=== PATIENT | male | born 1955 | race African-American/Black ===

== ENCOUNTER 2016-12-05 10:54 | Inpatient (IN) | payer MEDICAID ==
[~2016-12-05] VITALS: Ht 182.9 cm; Wt 74.4 kg
[2016-12-05 11:19] VITALS: BP_SYST 164
[2016-12-05 11:40] LABS: BASOPHILS # (AUTO) 0.3 K/uL (0.0-0.2); BASOPHILS % (AUTO) 3.5 % (0.0-2.0); EOSINOPHILS # (AUTO) 0.3 K/uL (0.0-0.4); EOSINOPHILS % (AUTO) 3.7 % (0.0-4.0); HEMATOCRIT 46.2 % (36-54); HEMOGLOBIN 14.8 g/dL (14.0-18.0); LYMPHOCYTES % (AUTO) 26.5 % (20.5-51.5); MEAN CORPUSCULAR HEMOGLOBIN 31 pg (27-31); MEAN CORPUSCULAR HGB CONC 32 % (32-36); MEAN CORPUSCULAR VOLUME 96 fL (79.0-98.0); MONOCYTES # (AUTO) 0.8 K/uL (0.0-1.0); MONOCYTES % (AUTO) 10.4 % (1.7-9.3); NEUTROPHILS # (AUTO) 4.3 K/uL (1.8-7.7); NEUTROPHILS % (AUTO) 55.9 % (40.0-70.0); PLATELET COUNT (AUTO) 297 K/uL (130-430); RED BLOOD CELL COUNT(AUTO) 4.79 MIL/uL (4.2-6.2); RED CELL DISTRIBUTION WIDTH 12.8 % (9.0-15.0); WHITE BLOOD COUNT (AUTO) 7.7 K/uL (4.8-10.8)
[2016-12-05 11:48] LABS: ANION GAP 10 (5-15); CHLORIDE 100 mmol/L (98-107); GLUCOSE 111 mg/dL (70-99); POTASSIUM 3.8 mmol/L (3.5-5.1); SODIUM SERUM 141 mmol/L (136-145); UREA NITROGEN, BLOOD 17 mg/dL (8-21)
[2016-12-05 11:52] LABS: GFR AFRICAN AMERICAN 126 mL/min (>90)
[2016-12-05 11:56] LABS: ALANINE AMINOTRANSFERASE 45 U/L (12-78); ASPARTATE AMINOTRANSFERASE 19 U/L (10-37); TOTAL BILIRUBIN 0.7 mg/dL (0.0-1.0); TOTAL PROTEIN, SERUM 8.2 g/dL (6.4-8.3)
[2016-12-05] MEDS ORDERED: GLYCERIN 1 SUPP.RECT (ADULT) RC ONE (12:00)
[2016-12-05] MEDS ORDERED: MAGNESIUM CITRATE 300 ML ORAL SOLUTION PO ONE (12:00)
[2016-12-05] MEDS ORDERED: NACL 0.9% 1,000 ML IV ONE (12:00)
[2016-12-05] MEDS ORDERED: IOHEXOL 350 mgI/mL, 150 ML INFUS..BTL IV ONE (12:47)
[2016-12-05] MEDS ORDERED: MORPHINE 4 MG/ML INJ. SYRINGE IVP ONE ×2 (13:00→14:00)
[2016-12-05] MEDS ORDERED: HALOPERIDOL LACTATE 5 MG/ML VIAL IVP ONE (14:45)
[2016-12-05] MEDS ORDERED: AZITHROMYCIN 500 MG in NS 250 ML IV ONE (15:00)
[2016-12-05] MEDS ORDERED: cefTRIAXone 1 GM in D5W 50 ML IV ONE (15:00)
[2016-12-05] MEDS ORDERED: THIA100T13 PO (15:24)
[2016-12-05] MEDS ORDERED: BACL10TA PO (15:24)
[2016-12-05] MEDS ORDERED: GABA-533 PO (15:24)
[2016-12-05] MEDS ORDERED: RIVA20TA PO (15:24)
[2016-12-05] MEDS ORDERED: ZOLP5TAB2 PO (15:24)
[2016-12-05] MEDS ORDERED: AMLO10TA88 PO (15:24)
[2016-12-05] MEDS ORDERED: POTA20TA83 PO (15:24)
[2016-12-05] MEDS ORDERED: ATOR40TA68 PO (15:24)
[2016-12-05] MEDS ORDERED: AMIT25TA9 PO (15:24)
[2016-12-05] MEDS ORDERED: HYDR25TA4 PO (15:24)
[2016-12-05] MEDS ORDERED: MAGN400T10 PO (15:24)
[2016-12-05] MEDS ORDERED: HYDR-1189 PO (15:24)
[2016-12-05] MEDS ORDERED: BISA10SU8 RC (15:24)
[2016-12-05] MEDS ORDERED: CYM30 PO (15:24)
[2016-12-05] MEDS ORDERED: SENN8.6T19 PO (15:24)
[2016-12-05] MEDS ORDERED: MAGN64TA7 PO (15:24)
[2016-12-05] MEDS ORDERED: FENT-71 TD (15:24)
[2016-12-05] MEDS ORDERED: cefTRIAXone 1 GM VIAL ONE (15:57)
[2016-12-05] MEDS ORDERED: AZITHROMYCIN 500 MG/VIAL (ZITHROMAX) IV ONE (15:58)
[2016-12-05 16:18] VITALS: BP_SYST 135
[2016-12-05] MEDS ORDERED: ZOLPIDEM TARTRATE 5 MG TABLET PO PRN (17:15)
[2016-12-05] MEDS ORDERED: AMITRIPTYLINE HCL 25 MG TABLET (ELAVIL) PO PRN (17:15)
[2016-12-05] MEDS ORDERED: ALBUTEROL SULFATE 0.083% 2.5 MG/3 ML VIAL.NEB INH PRN (17:15)
[2016-12-05] MEDS ORDERED: IPRATROPIUM BROM 0.5 MG/2.5 ML VIAL.NEB (ATROVENT) INH PRN (17:15)
[2016-12-05 17:21] VITALS: BP_SYST 135
[2016-12-05] MEDS: RIVAROXABAN 10 MG TABLET PO SCH (18:00)
[2016-12-05] MEDS: PIPERACILLIN/TAZO 3.375/DEX-IS 50 ML IV SCH (18:00)
[2016-12-05] MEDS: ALBUTEROL SULFATE 0.083% 2.5 MG/3 ML VIAL.NEB INH SCH ×2 (19:43→23:00)
[2016-12-05] MEDS: IPRATROPIUM BROM 0.5 MG/2.5 ML VIAL.NEB (ATROVENT) INH SCH ×2 (19:43→23:00)
[2016-12-05] MEDS: D5NS 1,000 ML IV SCH (20:39)
[2016-12-05] MEDS: MORPHINE 2 MG/ML INJ. SYRINGE IVP PRN (20:40)
[2016-12-05] MEDS: DULoxetine HCL 30 MG CAPSULE.DR (CYMBALTA) PO SCH (21:00)
[2016-12-05] MEDS: BACLOFEN 10 MG TABLET PO SCH (21:00)
[2016-12-05] MEDS: MAGNESIUM OXIDE 400 MG TABLET PO SCH (21:00)
[2016-12-05] MEDS: GABAPENTIN 400 MG CAPSULE PO SCH (21:00)
[2016-12-06] VITALS: BP_SYST 148
[2016-12-06] MEDS: PIPERACILLIN/TAZO 3.375/DEX-IS 50 ML IV SCH ×4 (01:12→18:08)
[2016-12-06] MEDS: MORPHINE 2 MG/ML INJ. SYRINGE IVP PRN ×4 (01:21→18:09)
[2016-12-06] MEDS: ALBUTEROL SULFATE 0.083% 2.5 MG/3 ML VIAL.NEB INH SCH ×6 (03:30→23:00)
[2016-12-06] MEDS: IPRATROPIUM BROM 0.5 MG/2.5 ML VIAL.NEB (ATROVENT) INH SCH ×6 (03:30→23:00)
[2016-12-06 04:41] VITALS: BP_SYST 128
[2016-12-06 08:07] VITALS: BP_SYST 123
[2016-12-06] MEDS: DULoxetine HCL 30 MG CAPSULE.DR (CYMBALTA) PO SCH ×2 (09:00→21:22)
[2016-12-06] MEDS: HYDROCHLOROTHIAZIDE 25 MG TABLET (HCTZ) PO SCH (09:00)
[2016-12-06] MEDS: MAGNESIUM OXIDE 400 MG TABLET PO SCH ×2 (09:00→21:23)
[2016-12-06] MEDS: amLODIPine BESYLATE 10 MG TABLET PO SCH (09:00)
[2016-12-06] MEDS: THIAMINE HCL 100 MG TABLET PO SCH (09:00)
[2016-12-06] MEDS: ATORVASTATIN 20 MG TABLET PO SCH (09:00)
[2016-12-06] MEDS: BACLOFEN 10 MG TABLET PO SCH ×3 (09:00→21:22)
[2016-12-06] MEDS: POTASSIUM CHLORIDE 20 MEQ TAB.PRT.SR PO SCH (09:00)
[2016-12-06] MEDS: GABAPENTIN 400 MG CAPSULE PO SCH ×3 (09:00→21:23)
[2016-12-06 12:15] VITALS: BP_SYST 128
[2016-12-06] MEDS: D5NS 1,000 ML IV SCH (14:41)
[2016-12-06 16:09] VITALS: BP_SYST 156
[2016-12-06] MEDS: RIVAROXABAN 10 MG TABLET PO SCH (18:08)
[2016-12-06 20:00] VITALS: BP_SYST 139
[2016-12-06] MEDS: HYDROcodone/ACETAMIN 5-325 MG TAB (NORCO/ VICODIN) PO PRN (21:23)
[2016-12-07] VITALS: BP_SYST 139
[2016-12-07] MEDS: PIPERACILLIN/TAZO 3.375/DEX-IS 50 ML IV SCH ×4 (00:22→17:32)
[2016-12-07] MEDS: IPRATROPIUM BROM 0.5 MG/2.5 ML VIAL.NEB (ATROVENT) INH SCH ×6 (03:00→23:17)
[2016-12-07] MEDS: ALBUTEROL SULFATE 0.083% 2.5 MG/3 ML VIAL.NEB INH SCH ×6 (03:00→23:17)
[2016-12-07 03:33] VITALS: BP_SYST 135
[2016-12-07] MEDS: D5NS 1,000 ML IV SCH (06:24)
[2016-12-07 08:00] VITALS: BP_SYST 150
[2016-12-07 08:01] LABS: BASOPHILS % (AUTO) 0.3 % (0.0-2.0); EOSINOPHILS # (AUTO) 0.2 K/uL (0.0-0.4); EOSINOPHILS % (AUTO) 3.4 % (0.0-4.0); HEMATOCRIT 38.8 % (36-54); LYMPHOCYTES # (AUTO) 1.7 K/uL (1.0-5.5); LYMPHOCYTES % (AUTO) 24.8 % (20.5-51.5); MEAN CORPUSCULAR HEMOGLOBIN 34 pg (27-31); MEAN CORPUSCULAR HGB CONC 34 % (32-36); MEAN CORPUSCULAR VOLUME 102 fL (79.0-98.0); MONOCYTES # (AUTO) 0.7 K/uL (0.0-1.0); MONOCYTES % (AUTO) 9.9 % (1.7-9.3); NEUTROPHILS # (AUTO) 4.2 K/uL (1.8-7.7); NEUTROPHILS % (AUTO) 61.6 % (40.0-70.0); PLATELET COUNT (AUTO) 252 K/uL (130-430); RED BLOOD CELL COUNT(AUTO) 3.82 MIL/uL (4.2-6.2); RED CELL DISTRIBUTION WIDTH 12.6 % (9.0-15.0); WHITE BLOOD COUNT (AUTO) 6.8 K/uL (4.8-10.8)
[2016-12-07] MEDS: MAGNESIUM OXIDE 400 MG TABLET PO SCH ×2 (08:07→22:23)
[2016-12-07] MEDS: DULoxetine HCL 30 MG CAPSULE.DR (CYMBALTA) PO SCH ×2 (08:07→22:23)
[2016-12-07] MEDS: THIAMINE HCL 100 MG TABLET PO SCH (08:07)
[2016-12-07] MEDS: GABAPENTIN 400 MG CAPSULE PO SCH ×3 (08:07→22:23)
[2016-12-07] MEDS: POTASSIUM CHLORIDE 20 MEQ TAB.PRT.SR PO SCH (08:07)
[2016-12-07] MEDS: HYDROCHLOROTHIAZIDE 25 MG TABLET (HCTZ) PO SCH (08:07)
[2016-12-07] MEDS: BACLOFEN 10 MG TABLET PO SCH ×3 (08:07→22:23)
[2016-12-07] MEDS: amLODIPine BESYLATE 10 MG TABLET PO SCH (08:07)
[2016-12-07] MEDS: ATORVASTATIN 20 MG TABLET PO SCH (08:08)
[2016-12-07] MEDS: MORPHINE 2 MG/ML INJ. SYRINGE IVP PRN (08:08)
[2016-12-07 08:14] LABS: ALBUMIN 3.4 g/dL (3.4-4.8); CALCIUM 9.2 mg/dL (8.4-11.0); CREATININE 0.78 mg/dL (0.55-1.30); POTASSIUM 3.6 mmol/L (3.5-5.1); TOTAL BILIRUBIN 0.7 mg/dL (0.0-1.0); TOTAL PROTEIN, SERUM 7.6 g/dL (6.4-8.3)
[2016-12-07] MEDS: 0.45% NACL 1,000 ML IV SCH (11:19)
[2016-12-07 12:42] VITALS: BP_SYST 140
[2016-12-07] MEDS: RIVAROXABAN 10 MG TABLET PO SCH (17:29)
[2016-12-07] MEDS: HYDROcodone/ACETAMIN 5-325 MG TAB (NORCO/ VICODIN) PO PRN (17:33)
[2016-12-07 19:00] VITALS: BP_SYST 145
[2016-12-07 23:30] VITALS: BP_SYST 145
[2016-12-08] MEDS: MORPHINE 2 MG/ML INJ. SYRINGE IVP PRN ×4 (00:35→20:49)
[2016-12-08] MEDS: PIPERACILLIN/TAZO 3.375/DEX-IS 50 ML IV SCH ×4 (00:36→17:25)
[2016-12-08] MEDS: ALBUTEROL SULFATE 0.083% 2.5 MG/3 ML VIAL.NEB INH SCH ×4 (03:00→21:12)
[2016-12-08] MEDS: IPRATROPIUM BROM 0.5 MG/2.5 ML VIAL.NEB (ATROVENT) INH SCH ×4 (03:00→21:13)
[2016-12-08 04:00] VITALS: BP_SYST 148
[2016-12-08] MEDS: HYDROcodone/ACETAMIN 5-325 MG TAB (NORCO/ VICODIN) PO PRN (05:03)
[2016-12-08 08:29] VITALS: BP_SYST 150
[2016-12-08] MEDS: ATORVASTATIN 20 MG TABLET PO SCH (08:37)
[2016-12-08] MEDS: HYDROCHLOROTHIAZIDE 25 MG TABLET (HCTZ) PO SCH (08:38)
[2016-12-08] MEDS: POTASSIUM CHLORIDE 20 MEQ TAB.PRT.SR PO SCH (08:38)
[2016-12-08] MEDS: amLODIPine BESYLATE 10 MG TABLET PO SCH (08:38)
[2016-12-08] MEDS: DULoxetine HCL 30 MG CAPSULE.DR (CYMBALTA) PO SCH ×2 (08:38→20:49)
[2016-12-08] MEDS: GABAPENTIN 400 MG CAPSULE PO SCH ×3 (08:39→20:49)
[2016-12-08] MEDS: BACLOFEN 10 MG TABLET PO SCH ×3 (08:39→20:49)
[2016-12-08] MEDS: THIAMINE HCL 100 MG TABLET PO SCH (08:39)
[2016-12-08] MEDS: MAGNESIUM OXIDE 400 MG TABLET PO SCH ×2 (08:39→20:49)
[2016-12-08] MEDS ORDERED: IMMUNE GLOBULIN,GAMMA(IGG) 0.5 GM ML IV SCH (09:00)
[2016-12-08] MEDS: 0.45% NACL 1,000 ML IV SCH (10:39)
[2016-12-08 13:01] VITALS: BP_SYST 144
[2016-12-08 14:28] LABS: BILIRUBIN,URINE NEGATIVE (NEGATIVE); BLOOD, URINE 2+ (NEGATIVE); CLARITY/URINE CLEAR (CLEAR); COLOR,URINE YELLOW (YELLOW); GLUCOSE,URINE NEGATIVE (NEGATIVE); KETONES,URINE NEGATIVE (NEGATIVE); LEUKOCYTE ESTERASE ,URINE NEGATIVE (NEGATIVE); NITRITE, URINE NEGATIVE (NEGATIVE); PROTEIN URINE NEGATIVE (NEGATIVE); UROBILINOGEN,URINE 0.2 (0.2-1.0)
[2016-12-08 14:36] LABS: RBC,URINE 20-50 /HPF (0-3)
[2016-12-08 14:37] LABS: BACTERIA,URINE FEW /HPF (None Seen); MUCUS,URINE None Seen /LPF (None Seen); WBC,URINE 0-3 /HPF (0-3)
[2016-12-08 16:47] VITALS: BP_SYST 144
[2016-12-08] MEDS: RIVAROXABAN 10 MG TABLET PO SCH (17:26)
[2016-12-08] MEDS ORDERED: POLYETHYLENE GLYCOL 3350, 17 GM/ POWD.PACK PO ONE (18:00)
[2016-12-09] MEDS ORDERED: POLYETHYLENE GLYCOL 3350, 17 GM/ POWD.PACK PO SCH (09:00)
== END 2016-12-08 22:06 | DRG 137 ==
LOC: SED 10:54 → STU 15:13 → SMU 12-08 16:04
PROVIDERS: ADMIT Internal Medicine Hospice and Palliative Medicine; ATTEND Internal Medicine Hospice and Palliative Medicine
DX: J69.0 Pneumonitis due to inhalation of food and vomit (principal); G61.0 Guillain-Barre syndrome; R13.10 Dysphagia, unspecified; G61.81 Chronic inflammatory demyelinating polyneuritis; E78.5 Hyperlipidemia, unspecified; I10 Essential (primary) hypertension; G89.29 Other chronic pain; Z79.899 Other long term (current) drug therapy; Z86.718 Personal history of other venous thrombosis and embolism; Z79.01 Long term (current) use of anticoagulants
CPT/HCPCS: 36415; 71010; 71275; 80053; 81000-TC; 84484; 85025; 87081; 92610-GN; 93005; 93970; 94640; 94760; 96361; 96365; 96375; 96376; 99285; J0456; J0696; J2270; J2543; J7042; J7050; Q9967

== ENCOUNTER 2016-12-09 18:04 | Inpatient (IN) | payer MEDICAID ==
[~2016-12-09] VITALS: Ht 182.9 cm; Wt 72.1 kg
[2016-12-09] VITALS (7 sets, daily range): BP systolic 124–194
[~2016-12-09 18:04] MED LIST: AMIT25TA9 PO; AMLO10TA88 PO; ATOR40TA68 PO; BACL10TA PO; BISA10SU8 RC; CYM30 PO; ETOMIDATE 20 MG/ 10 ML VIAL (AMIDATE) IVP ONE; FENT-71 TD; GABA-533 PO; HYDR-1189 PO; HYDR25TA4 PO; MAGN400T10 PO; MAGN64TA7 PO; POTA20TA83 PO; RIVA20TA PO; SENN8.6T19 PO; SUCCINYLCHOLINE CHLORIDE 20 MG/ML(QUELICIN) IVP ONE; THIA100T13 PO; ZOLP5TAB2 PO
[2016-12-09] MEDS ORDERED: VANCOMYCIN HCL 1,000 MG in NS 250 ML IV ONE (18:30)
[2016-12-09] MEDS ORDERED: NACL 0.9% 1,000 ML IV ONE (18:30)
[2016-12-09] MEDS ORDERED: PIPERACILLIN/TAZO 3.375 GM in NS 50 ML IV ONE (18:30)
[2016-12-09] MEDS ORDERED: PROPOFOL DRIP 100 ML IV ONE ×2 (18:30→18:31)
[2016-12-09] MEDS ORDERED: ETOMIDATE 20 MG/ 10 ML VIAL (AMIDATE) IVP ONE (18:45)
[2016-12-09] MEDS ORDERED: PIPERACILLIN/TAZOBACTAM 3.375 GM/VIAL (ZOSYN) IV ONE (18:45)
[2016-12-09] MEDS ORDERED: DIAZEPAM 10 MG/2 ML DISP.SYRIN IVP ONE ×2 (18:45→19:45)
[2016-12-09] MEDS ORDERED: SUCCINYLCHOLINE CHLORIDE 20 MG/ML(QUELICIN) IVP ONE (18:45)
[2016-12-09 19:23] LABS: BASOPHILS % (AUTO) 0.1 % (0.0-2.0); EOSINOPHILS # (AUTO) 0.1 K/uL (0.0-0.4); EOSINOPHILS % (AUTO) 0.4 % (0.0-4.0); HEMATOCRIT 45.9 % (36-54); HEMOGLOBIN 15.9 g/dL (14.0-18.0); LYMPHOCYTES # (AUTO) 1.7 K/uL (1.0-5.5); LYMPHOCYTES % (AUTO) 13.7 % (20.5-51.5); MEAN CORPUSCULAR HEMOGLOBIN 35 pg (27-31); MEAN CORPUSCULAR HGB CONC 35 % (32-36); MEAN CORPUSCULAR VOLUME 99 fL (79.0-98.0); MONOCYTES # (AUTO) 0.7 K/uL (0.0-1.0); MONOCYTES % (AUTO) 5.9 % (1.7-9.3); NEUTROPHILS % (AUTO) 79.9 % (40.0-70.0); PLATELET COUNT (AUTO) 319 K/uL (130-430); RED BLOOD CELL COUNT(AUTO) 4.62 MIL/uL (4.2-6.2); RED CELL DISTRIBUTION WIDTH 12.3 % (9.0-15.0); WHITE BLOOD COUNT (AUTO) 12.5 K/uL (4.8-10.8)
[2016-12-09 19:23] LABS: ABG TOTAL HEMOGLOBIN 14.9 G/dL (12.0-18.0); BLOOD GAS BASE EXCESS -4.5 mmol/L (-3.0-3.0); BLOOD GAS PH 7.364 (7.350-7.450); BLOOD O2Hb% 92.2 % (94.0-97.0)
[2016-12-09 19:24] LABS: BLOOD GAS COHb% 0.6 % (0.5-1.5); BLOOD GAS HHB 6.7 % (0.0-6.0)
[2016-12-09 19:25] LABS: CREATININE 0.63 mg/dL (0.55-1.30)
[2016-12-09 19:30] LABS: ALBUMIN 4.3 g/dL (3.4-4.8); INR 1.1 (0.80-1.20); PROTHROMBIN TIME 12.2 SECS (9.5-12.5); TOTAL BILIRUBIN 0.8 mg/dL (0.0-1.0); TOTAL PROTEIN, SERUM 9.5 g/dL (6.4-8.3)
[2016-12-09 19:39] LABS: BILIRUBIN,URINE NEGATIVE (NEGATIVE); BLOOD, URINE 3+ (NEGATIVE); COLOR,URINE YELLOW (YELLOW); GLUCOSE,URINE NEGATIVE (NEGATIVE); KETONES,URINE 1+ (NEGATIVE); LEUKOCYTE ESTERASE ,URINE NEGATIVE (NEGATIVE); NITRITE, URINE NEGATIVE (NEGATIVE); PROTEIN URINE 1+ (NEGATIVE); UROBILINOGEN,URINE 0.2 (0.2-1.0)
[2016-12-09 19:50] LABS: CLARITY/URINE SLIGHTLY HAZY (CLEAR)
[2016-12-09 19:51] LABS: BACTERIA,URINE FEW /HPF (None Seen); RBC,URINE 20-50 /HPF (0-3); WBC,URINE 0-3 /HPF (0-3)
[2016-12-09 19:52] LABS: MUCUS,URINE None Seen /LPF (None Seen)
[2016-12-09] MEDS: D5/0.45 NS 1,000 ML IV SCH (21:24)
[2016-12-09] MEDS ORDERED: BISACODYL 10 MG/SUPPOSITORY RC PRN (22:00)
[2016-12-09] MEDS ORDERED: HYDROcodone/ACETAMIN 5-325 MG TAB (NORCO/ VICODIN) PO PRN (22:00)
[2016-12-09] MEDS: ALBUTEROL SULFATE 0.083% 2.5 MG/3 ML VIAL.NEB INH SCH (23:28)
[2016-12-10] VITALS (36 sets, daily range): BP systolic 108–184
[2016-12-10] MEDS: hydrALAZINE HCL 20 MG/ML VIAL IVP PRN ×3 (00:07→21:20)
[2016-12-10] MEDS: MORPHINE 4 MG/ML INJ. SYRINGE IVP PRN ×4 (02:52→21:12)
[2016-12-10] MEDS: PROPOFOL DRIP 100 ML IV PRN ×5 (04:21→23:21)
[2016-12-10] MEDS: methylPREDNISolone SOD SUCC/PF 62.5 MG/ML VIAL IVP SCH ×3 (05:31→21:02)
[2016-12-10 07:08] LABS: ALBUMIN 3.6 g/dL (3.4-4.8); CALCIUM 9.3 mg/dL (8.4-11.0); CREATININE 0.5 mg/dL (0.55-1.30); TOTAL BILIRUBIN 0.8 mg/dL (0.0-1.0); TOTAL PROTEIN, SERUM 8.1 g/dL (6.4-8.3)
[2016-12-10 07:11] LABS: BASOPHILS % (AUTO) 0.2 % (0.0-2.0); EOSINOPHILS % (AUTO) 0.2 % (0.0-4.0); HEMATOCRIT 42.3 % (36-54); HEMOGLOBIN 14.4 g/dL (14.0-18.0); LYMPHOCYTES # (AUTO) 1.4 K/uL (1.0-5.5); LYMPHOCYTES % (AUTO) 9.9 % (20.5-51.5); MEAN CORPUSCULAR HEMOGLOBIN 34 pg (27-31); MEAN CORPUSCULAR HGB CONC 34 % (32-36); MEAN CORPUSCULAR VOLUME 99 fL (79.0-98.0); MONOCYTES # (AUTO) 1.2 K/uL (0.0-1.0); MONOCYTES % (AUTO) 8.6 % (1.7-9.3); PLATELET COUNT (AUTO) 296 K/uL (130-430); RED BLOOD CELL COUNT(AUTO) 4.28 MIL/uL (4.2-6.2); RED CELL DISTRIBUTION WIDTH 12.3 % (9.0-15.0); WHITE BLOOD COUNT (AUTO) 13.6 K/uL (4.8-10.8)
[2016-12-10] MEDS: ALBUTEROL SULFATE 0.083% 2.5 MG/3 ML VIAL.NEB INH SCH ×5 (07:55→23:17)
[2016-12-10 08:01] LABS: BLOOD GAS PH 7.448 (7.350-7.450)
[2016-12-10 08:02] LABS: ABG TOTAL HEMOGLOBIN 14.9 G/dL (12.0-18.0); BLOOD GAS BASE EXCESS -0.1 mmol/L (-3.0-3.0); BLOOD GAS COHb% 0.2 % (0.5-1.5); BLOOD GAS HHB 1.7 % (0.0-6.0); BLOOD O2Hb% 97.9 % (94.0-97.0)
[2016-12-10] MEDS: D5/0.45 NS 1,000 ML IV SCH ×4 (08:45→21:15)
[2016-12-10] MEDS ORDERED: POTASSIUM CHLORIDE 40 MEQ in NS 250 ML IV ONE (08:45)
[2016-12-10] MEDS: SENNOSIDES 8.6 MG TABLET PO SCH (09:00)
[2016-12-10] MEDS: LEVOFLOXACIN 500 MG/D5W 100 ML IV SCH (09:01)
[2016-12-10] MEDS: THIAMINE HCL 100 MG TABLET PO SCH (09:45)
[2016-12-10] MEDS: MAGNESIUM OXIDE 400 MG TABLET PO SCH ×2 (09:45→21:01)
[2016-12-10] MEDS: GABAPENTIN 400 MG CAPSULE PO SCH ×3 (09:45→21:01)
[2016-12-10] MEDS: ATORVASTATIN 20 MG TABLET PO SCH (09:46)
[2016-12-10] MEDS: amLODIPine BESYLATE 10 MG TABLET PO SCH (09:46)
[2016-12-10] MEDS: RIVAROXABAN 10 MG TABLET PO SCH (09:47)
[2016-12-10 10:17] LABS: NEUTROPHILS % (AUTO) 81.1 % (40.0-70.0)
[2016-12-10] MEDS: metroNIDAZOLE 500 mg/NS 100 ML IV SCH ×2 (14:01→21:02)
[2016-12-11] VITALS (33 sets, daily range): BP systolic 112–173
[2016-12-11] MEDS: D5/0.45 NS 1,000 ML IV SCH ×3 (02:25→21:04)
[2016-12-11] MEDS ORDERED: PROPOFOL DRIP 100 ML IV ONE (03:26)
[2016-12-11] MEDS: ALBUTEROL SULFATE 0.083% 2.5 MG/3 ML VIAL.NEB INH SCH ×6 (03:41→23:05)
[2016-12-11] MEDS: hydrALAZINE HCL 20 MG/ML VIAL IVP PRN ×2 (04:11→18:01)
[2016-12-11] MEDS: MORPHINE 4 MG/ML INJ. SYRINGE IVP PRN (05:36)
[2016-12-11] MEDS: methylPREDNISolone SOD SUCC/PF 62.5 MG/ML VIAL IVP SCH ×3 (05:36→21:02)
[2016-12-11] MEDS: metroNIDAZOLE 500 mg/NS 100 ML IV SCH ×3 (05:37→21:03)
[2016-12-11] MEDS: LEVOFLOXACIN 500 MG/D5W 100 ML IV SCH (08:13)
[2016-12-11] MEDS: RIVAROXABAN 10 MG TABLET PO SCH (08:14)
[2016-12-11] MEDS: MAGNESIUM OXIDE 400 MG TABLET PO SCH ×2 (08:14→21:02)
[2016-12-11] MEDS: ATORVASTATIN 20 MG TABLET PO SCH (08:14)
[2016-12-11] MEDS: THIAMINE HCL 100 MG TABLET PO SCH (08:14)
[2016-12-11] MEDS: GABAPENTIN 400 MG CAPSULE PO SCH ×3 (08:14→21:02)
[2016-12-11] MEDS: amLODIPine BESYLATE 10 MG TABLET PO SCH (08:15)
[2016-12-11] MEDS: SENNOSIDES 8.6 MG TABLET PO SCH (08:16)
[2016-12-11 08:27] LABS: ABG TOTAL HEMOGLOBIN 13.7 G/dL (12.0-18.0); BLOOD GAS COHb% 0.1 % (0.5-1.5); BLOOD GAS HHB 1.6 % (0.0-6.0); BLOOD GAS PH 7.467 (7.350-7.450); BLOOD O2Hb% 97.9 % (94.0-97.0)
[2016-12-11] MEDS: PROPOFOL DRIP 100 ML IV PRN ×3 (09:47→18:08)
[2016-12-11] MEDS ORDERED: IMMUNE GLOBULIN,GAMMA(IGG) 0.5 GM ML IV ONE (19:30)
[2016-12-12] VITALS (28 sets, daily range): BP systolic 115–155
[2016-12-12] MEDS: PROPOFOL DRIP 100 ML IV PRN ×4 (00:08→19:57)
[2016-12-12] MEDS: ALBUTEROL SULFATE 0.083% 2.5 MG/3 ML VIAL.NEB INH SCH ×6 (04:00→23:16)
[2016-12-12] MEDS: MORPHINE 4 MG/ML INJ. SYRINGE IVP PRN (04:13)
[2016-12-12] MEDS: metroNIDAZOLE 500 mg/NS 100 ML IV SCH ×3 (05:25→21:57)
[2016-12-12] MEDS: methylPREDNISolone SOD SUCC/PF 62.5 MG/ML VIAL IVP SCH ×3 (05:25→22:00)
[2016-12-12 07:07] LABS: BASOPHILS # (AUTO) 0.2 K/uL (0.0-0.2); BASOPHILS % (AUTO) 0.9 % (0.0-2.0); HEMATOCRIT 38.9 % (36-54); HEMOGLOBIN 13.3 g/dL (14.0-18.0); LYMPHOCYTES % (AUTO) 5.7 % (20.5-51.5); MEAN CORPUSCULAR HEMOGLOBIN 34 pg (27-31); MEAN CORPUSCULAR HGB CONC 34 % (32-36); MEAN CORPUSCULAR VOLUME 101 fL (79.0-98.0); MONOCYTES % (AUTO) 11.2 % (1.7-9.3); NEUTROPHILS # (AUTO) 15.1 K/uL (1.8-7.7); NEUTROPHILS % (AUTO) 82.2 % (40.0-70.0); PLATELET COUNT (AUTO) 299 K/uL (130-430); RED BLOOD CELL COUNT(AUTO) 3.85 MIL/uL (4.2-6.2); RED CELL DISTRIBUTION WIDTH 12.7 % (9.0-15.0)
[2016-12-12 07:11] LABS: WHITE BLOOD COUNT (AUTO) 18.3 K/uL (4.8-10.8)
[2016-12-12 07:22] LABS: ALBUMIN 3.3 g/dL (3.4-4.8); CALCIUM 8.8 mg/dL (8.4-11.0); CREATININE 0.6 mg/dL (0.55-1.30); POTASSIUM 3.5 mmol/L (3.5-5.1); TOTAL BILIRUBIN 0.3 mg/dL (0.0-1.0); TOTAL PROTEIN, SERUM 7.5 g/dL (6.4-8.3)
[2016-12-12 07:57] LABS: ABG TOTAL HEMOGLOBIN 13.9 G/dL (12.0-18.0); BLOOD GAS BASE EXCESS 4.3 mmol/L (-3.0-3.0); BLOOD GAS COHb% 0.4 % (0.5-1.5); BLOOD GAS HHB 1.2 % (0.0-6.0); BLOOD GAS PH 7.426 (7.350-7.450); BLOOD O2Hb% 97.9 % (94.0-97.0)
[2016-12-12] MEDS: LEVOFLOXACIN 500 MG/D5W 100 ML IV SCH (09:43)
[2016-12-12] MEDS: ATORVASTATIN 20 MG TABLET PO SCH (09:43)
[2016-12-12] MEDS: THIAMINE HCL 100 MG TABLET PO SCH (09:43)
[2016-12-12] MEDS: amLODIPine BESYLATE 10 MG TABLET PO SCH (09:44)
[2016-12-12] MEDS: MAGNESIUM OXIDE 400 MG TABLET PO SCH ×2 (09:44→21:56)
[2016-12-12] MEDS: GABAPENTIN 400 MG CAPSULE PO SCH ×3 (09:44→21:56)
[2016-12-12] MEDS: SENNOSIDES 8.6 MG TABLET PO SCH (09:47)
[2016-12-12] MEDS: RIVAROXABAN 10 MG TABLET PO SCH (09:48)
[2016-12-12] MEDS: D5/0.45 NS 1,000 ML IV SCH (12:06)
[2016-12-12] MEDS: LORazepam 2 MG/ML VIAL IVP PRN (15:07)
[2016-12-12] MEDS: MORPHINE 2 MG/ML INJ. SYRINGE IVP PRN (18:35)
[2016-12-13] VITALS (30 sets, daily range): BP systolic 107–173
[2016-12-13] MEDS: PROPOFOL DRIP 100 ML IV PRN ×3 (00:29→09:07)
[2016-12-13] MEDS: LORazepam 2 MG/ML VIAL IVP PRN ×2 (01:42→18:11)
[2016-12-13] MEDS: MORPHINE 2 MG/ML INJ. SYRINGE IVP PRN (01:42)
[2016-12-13] MEDS: ALBUTEROL SULFATE 0.083% 2.5 MG/3 ML VIAL.NEB INH SCH ×6 (03:36→23:22)
[2016-12-13] MEDS: metroNIDAZOLE 500 mg/NS 100 ML IV SCH ×3 (05:54→21:29)
[2016-12-13] MEDS: methylPREDNISolone SOD SUCC/PF 62.5 MG/ML VIAL IVP SCH (05:54)
[2016-12-13 06:59] LABS: BASOPHILS % (AUTO) 0.1 % (0.0-2.0); HEMATOCRIT 35.3 % (36-54); HEMOGLOBIN 11.8 g/dL (14.0-18.0); LYMPHOCYTES # (AUTO) 0.5 K/uL (1.0-5.5); LYMPHOCYTES % (AUTO) 4.1 % (20.5-51.5); MEAN CORPUSCULAR HEMOGLOBIN 33 pg (27-31); MEAN CORPUSCULAR HGB CONC 33 % (32-36); MEAN CORPUSCULAR VOLUME 99 fL (79.0-98.0); MONOCYTES # (AUTO) 0.8 K/uL (0.0-1.0); MONOCYTES % (AUTO) 6.7 % (1.7-9.3); NEUTROPHILS # (AUTO) 11.1 K/uL (1.8-7.7); NEUTROPHILS % (AUTO) 89.1 % (40.0-70.0); PLATELET COUNT (AUTO) 266 K/uL (130-430); RED BLOOD CELL COUNT(AUTO) 3.55 MIL/uL (4.2-6.2); RED CELL DISTRIBUTION WIDTH 12.4 % (9.0-15.0)
[2016-12-13 07:25] LABS: WHITE BLOOD COUNT (AUTO) 12.4 K/uL (4.8-10.8)
[2016-12-13 07:26] LABS: CALCIUM 8.2 mg/dL (8.4-11.0); CREATININE 0.52 mg/dL (0.55-1.30); POTASSIUM 3.9 mmol/L (3.5-5.1); TOTAL BILIRUBIN 0.2 mg/dL (0.0-1.0); TOTAL PROTEIN, SERUM 6.5 g/dL (6.4-8.3)
[2016-12-13 08:17] LABS: ABG TOTAL HEMOGLOBIN 12.7 G/dL (12.0-18.0); BLOOD GAS BASE EXCESS 3.8 mmol/L (-3.0-3.0); BLOOD GAS COHb% 0.2 % (0.5-1.5); BLOOD GAS HHB 2.2 % (0.0-6.0); BLOOD GAS PH 7.446 (7.350-7.450); BLOOD O2Hb% 97.5 % (94.0-97.0)
[2016-12-13] MEDS: LEVOFLOXACIN 500 MG/D5W 100 ML IV SCH (08:52)
[2016-12-13] MEDS: THIAMINE HCL 100 MG TABLET PO SCH (08:52)
[2016-12-13] MEDS: MAGNESIUM OXIDE 400 MG TABLET PO SCH ×2 (08:53→20:03)
[2016-12-13] MEDS: ATORVASTATIN 20 MG TABLET PO SCH (08:53)
[2016-12-13] MEDS: GABAPENTIN 400 MG CAPSULE PO SCH ×3 (08:53→20:03)
[2016-12-13] MEDS: SENNOSIDES 8.6 MG TABLET PO SCH (08:53)
[2016-12-13] MEDS: amLODIPine BESYLATE 10 MG TABLET PO SCH (08:54)
[2016-12-13] MEDS: RIVAROXABAN 10 MG TABLET PO SCH (09:00)
[2016-12-13] MEDS: hydrALAZINE HCL 20 MG/ML VIAL IVP PRN (15:56)
[2016-12-13] MEDS: D5/0.45 NS 1,000 ML IV SCH (15:59)
[2016-12-13] MEDS: methylPREDNISolone SOD SUCC 40 MG/ML VIAL IVP SCH (20:04)
[2016-12-14] VITALS (27 sets, daily range): BP systolic 137–170
[2016-12-14] MEDS: ALBUTEROL SULFATE 0.083% 2.5 MG/3 ML VIAL.NEB INH SCH ×6 (04:42→23:13)
[2016-12-14] MEDS: metroNIDAZOLE 500 mg/NS 100 ML IV SCH ×3 (05:27→21:23)
[2016-12-14 06:49] LABS: EOSINOPHILS % (AUTO) 0.1 % (0.0-4.0); HEMATOCRIT 38.1 % (36-54); HEMOGLOBIN 13.2 g/dL (14.0-18.0); LYMPHOCYTES # (AUTO) 0.9 K/uL (1.0-5.5); LYMPHOCYTES % (AUTO) 6.4 % (20.5-51.5); MEAN CORPUSCULAR HEMOGLOBIN 34 pg (27-31); MEAN CORPUSCULAR HGB CONC 35 % (32-36); MEAN CORPUSCULAR VOLUME 99 fL (79.0-98.0); MONOCYTES # (AUTO) 1.6 K/uL (0.0-1.0); MONOCYTES % (AUTO) 11.7 % (1.7-9.3); NEUTROPHILS # (AUTO) 11.2 K/uL (1.8-7.7); NEUTROPHILS % (AUTO) 81.8 % (40.0-70.0); PLATELET COUNT (AUTO) 302 K/uL (130-430); RED BLOOD CELL COUNT(AUTO) 3.84 MIL/uL (4.2-6.2); RED CELL DISTRIBUTION WIDTH 12.8 % (9.0-15.0); WHITE BLOOD COUNT (AUTO) 13.7 K/uL (4.8-10.8)
[2016-12-14 07:17] LABS: ALBUMIN 3.2 g/dL (3.4-4.8); CALCIUM 8.6 mg/dL (8.4-11.0); CREATININE 0.62 mg/dL (0.55-1.30); POTASSIUM 3.8 mmol/L (3.5-5.1); TOTAL BILIRUBIN 0.3 mg/dL (0.0-1.0); TOTAL PROTEIN, SERUM 7.1 g/dL (6.4-8.3)
[2016-12-14 07:54] LABS: ABG TOTAL HEMOGLOBIN 13.8 G/dL (12.0-18.0); BLOOD GAS BASE EXCESS 4.5 mmol/L (-3.0-3.0); BLOOD GAS PH 7.508 (7.350-7.450)
[2016-12-14 07:55] LABS: BLOOD GAS COHb% 0.6 % (0.5-1.5); BLOOD GAS HHB 3.5 % (0.0-6.0); BLOOD O2Hb% 95.4 % (94.0-97.0)
[2016-12-14] MEDS: THIAMINE HCL 100 MG TABLET PO SCH (09:13)
[2016-12-14] MEDS: MAGNESIUM OXIDE 400 MG TABLET PO SCH ×2 (09:13→21:21)
[2016-12-14] MEDS: ATORVASTATIN 20 MG TABLET PO SCH (09:13)
[2016-12-14] MEDS: RIVAROXABAN 10 MG TABLET PO SCH (09:13)
[2016-12-14] MEDS: SENNOSIDES 8.6 MG TABLET PO SCH (09:13)
[2016-12-14] MEDS: GABAPENTIN 400 MG CAPSULE PO SCH ×3 (09:17→21:21)
[2016-12-14] MEDS: amLODIPine BESYLATE 10 MG TABLET PO SCH (09:17)
[2016-12-14] MEDS: methylPREDNISolone SOD SUCC 40 MG/ML VIAL IVP SCH ×2 (09:18→21:21)
[2016-12-14] MEDS: LEVOFLOXACIN 500 MG/D5W 100 ML IV SCH (09:19)
[2016-12-14 11:36] LABS: ABG TOTAL HEMOGLOBIN 13.4 G/dL (12.0-18.0); BLOOD GAS BASE EXCESS 6.3 mmol/L (-3.0-3.0); BLOOD GAS PH 7.511 (7.350-7.450); BLOOD O2Hb% 96.3 % (94.0-97.0)
[2016-12-14 11:37] LABS: BLOOD GAS COHb% 0.2 % (0.5-1.5)
[2016-12-14] MEDS ORDERED: ETOMIDATE 20 MG/ 10 ML VIAL (AMIDATE) ONE ×2 (15:00→16:28)
[2016-12-14] MEDS ORDERED: SUCCINYLCHOLINE CHLORIDE 20 MG/ML(QUELICIN) ONE (15:00)
[2016-12-14] MEDS: MORPHINE 2 MG/ML INJ. SYRINGE IVP PRN ×3 (15:12→23:34)
[2016-12-14] MEDS: LORazepam 2 MG/ML VIAL IVP PRN ×4 (15:26→23:35)
[2016-12-14] MEDS: hydrALAZINE HCL 20 MG/ML VIAL IVP PRN ×2 (15:26→23:30)
[2016-12-14] MEDS ORDERED: MIDAZOLAM HCL 5 MG/5 ML VIAL ONE (16:24)
[2016-12-14 16:48] LABS: BLOOD GAS PH 7.318 (7.350-7.450)
[2016-12-14 16:49] LABS: ABG TOTAL HEMOGLOBIN 15.1 G/dL (12.0-18.0); BLOOD GAS BASE EXCESS 3.1 mmol/L (-3.0-3.0); BLOOD GAS COHb% 0.8 % (0.5-1.5); BLOOD GAS HHB 15.4 % (0.0-6.0); BLOOD O2Hb% 83.3 % (94.0-97.0)
[2016-12-14 17:47] LABS: BLOOD GAS BASE EXCESS 3.5 mmol/L (-3.0-3.0); BLOOD GAS PH 7.409 (7.350-7.450)
[2016-12-14 17:48] LABS: BLOOD GAS COHb% 0.2 % (0.5-1.5); BLOOD GAS HHB 1.3 % (0.0-6.0); BLOOD O2Hb% 98.1 % (94.0-97.0)
[2016-12-14] MEDS: D5/0.45 NS 1,000 ML IV SCH ×2 (18:13→23:40)
[2016-12-14] MEDS: PROPOFOL DRIP 100 ML IV PRN (20:09)
[2016-12-15] VITALS (36 sets, daily range): BP systolic 115–166
[2016-12-15] MEDS: PROPOFOL DRIP 100 ML IV PRN ×3 (02:39→22:53)
[2016-12-15] MEDS: ALBUTEROL SULFATE 0.083% 2.5 MG/3 ML VIAL.NEB INH SCH ×5 (03:33→20:15)
[2016-12-15] MEDS: metroNIDAZOLE 500 mg/NS 100 ML IV SCH ×2 (06:07→14:42)
[2016-12-15 07:06] LABS: HEMATOCRIT 35.5 % (36-54); HEMOGLOBIN 12.3 g/dL (14.0-18.0); MEAN CORPUSCULAR HEMOGLOBIN 35 pg (27-31); MEAN CORPUSCULAR HGB CONC 35 % (32-36); MEAN CORPUSCULAR VOLUME 101 fL (79.0-98.0); PLATELET COUNT (AUTO) 279 K/uL (130-430); RED BLOOD CELL COUNT(AUTO) 3.51 MIL/uL (4.2-6.2); RED CELL DISTRIBUTION WIDTH 12.5 % (9.0-15.0); WHITE BLOOD COUNT (AUTO) 22.7 K/uL (4.8-10.8)
[2016-12-15 07:23] LABS: ALBUMIN 2.9 g/dL (3.4-4.8); CALCIUM 8.3 mg/dL (8.4-11.0); CREATININE 0.56 mg/dL (0.55-1.30); POTASSIUM 4.2 mmol/L (3.5-5.1); TOTAL BILIRUBIN 0.3 mg/dL (0.0-1.0); TOTAL PROTEIN, SERUM 6.6 g/dL (6.4-8.3)
[2016-12-15] MEDS: ATORVASTATIN 20 MG TABLET PO SCH (08:53)
[2016-12-15] MEDS: methylPREDNISolone SOD SUCC 40 MG/ML VIAL IVP SCH ×2 (08:53→20:31)
[2016-12-15] MEDS: RIVAROXABAN 10 MG TABLET PO SCH (08:53)
[2016-12-15] MEDS: SENNOSIDES 8.6 MG TABLET PO SCH (08:53)
[2016-12-15] MEDS: THIAMINE HCL 100 MG TABLET PO SCH (08:53)
[2016-12-15] MEDS: MAGNESIUM OXIDE 400 MG TABLET PO SCH ×2 (08:53→20:32)
[2016-12-15] MEDS: GABAPENTIN 400 MG CAPSULE PO SCH ×3 (08:54→20:32)
[2016-12-15] MEDS: amLODIPine BESYLATE 10 MG TABLET PO SCH (08:54)
[2016-12-15] MEDS: MORPHINE 2 MG/ML INJ. SYRINGE IVP PRN (09:10)
[2016-12-15 09:11] LABS: ABG TOTAL HEMOGLOBIN 13.7 G/dL (12.0-18.0); BLOOD GAS BASE EXCESS 1.6 mmol/L (-3.0-3.0); BLOOD GAS COHb% 0.4 % (0.5-1.5); BLOOD GAS HHB 1.6 % (0.0-6.0); BLOOD GAS PH 7.474 (7.350-7.450); BLOOD O2Hb% 97.5 % (94.0-97.0)
[2016-12-15] MEDS: LEVOFLOXACIN 500 MG/D5W 100 ML IV SCH (09:33)
[2016-12-15 11:25] LABS: ATYPICAL LYMPHOCYTES % 7 % (0-0); BAND % (MANUAL) 9 % (0-6); BASOPHILS % (MANUAL) 0 % (0-2); EOSINOPHILS % (MANUAL) 0 % (0-7); LYMPHOCYTES % (MANUAL) 5 % (20-46); MONOCYTES % (MANUAL) 0 % (0-11)
[2016-12-15] MEDS: hydrALAZINE HCL 20 MG/ML VIAL IVP PRN (13:02)
[2016-12-15] MEDS: LORazepam 2 MG/ML VIAL IVP PRN (13:04)
[2016-12-15] MEDS: PIPERACILLIN/TAZO 3.375/DEX-IS 50 ML IV SCH (18:51)
[2016-12-16] VITALS (35 sets, daily range): BP systolic 120–192
[2016-12-16] MEDS: ALBUTEROL SULFATE 0.083% 2.5 MG/3 ML VIAL.NEB INH SCH ×7 (00:05→23:14)
[2016-12-16] MEDS: PIPERACILLIN/TAZO 3.375/DEX-IS 50 ML IV SCH ×5 (01:00→23:53)
[2016-12-16] MEDS: PROPOFOL DRIP 100 ML IV PRN ×4 (05:30→18:30)
[2016-12-16 06:45] LABS: BASOPHILS % (AUTO) 0.1 % (0.0-2.0); HEMATOCRIT 36.2 % (36-54); HEMOGLOBIN 12.4 g/dL (14.0-18.0); LYMPHOCYTES % (AUTO) 5.4 % (20.5-51.5); MEAN CORPUSCULAR HEMOGLOBIN 34 pg (27-31); MEAN CORPUSCULAR HGB CONC 34 % (32-36); MEAN CORPUSCULAR VOLUME 99 fL (79.0-98.0); MONOCYTES # (AUTO) 0.9 K/uL (0.0-1.0); MONOCYTES % (AUTO) 5.2 % (1.7-9.3); NEUTROPHILS % (AUTO) 89.3 % (40.0-70.0); PLATELET COUNT (AUTO) 251 K/uL (130-430); RED BLOOD CELL COUNT(AUTO) 3.66 MIL/uL (4.2-6.2); RED CELL DISTRIBUTION WIDTH 12.5 % (9.0-15.0); WHITE BLOOD COUNT (AUTO) 17.9 K/uL (4.8-10.8)
[2016-12-16 07:01] LABS: ALBUMIN 2.8 g/dL (3.4-4.8); CALCIUM 8.3 mg/dL (8.4-11.0); CREATININE 0.52 mg/dL (0.55-1.30); POTASSIUM 3.8 mmol/L (3.5-5.1); TOTAL BILIRUBIN 0.4 mg/dL (0.0-1.0); TOTAL PROTEIN, SERUM 6.5 g/dL (6.4-8.3)
[2016-12-16] MEDS: THIAMINE HCL 100 MG TABLET PO SCH (08:54)
[2016-12-16] MEDS: MAGNESIUM OXIDE 400 MG TABLET PO SCH ×2 (08:55→21:11)
[2016-12-16] MEDS: SENNOSIDES 8.6 MG TABLET PO SCH (08:55)
[2016-12-16] MEDS: amLODIPine BESYLATE 10 MG TABLET PO SCH (08:55)
[2016-12-16] MEDS: GABAPENTIN 400 MG CAPSULE PO SCH ×3 (08:55→21:11)
[2016-12-16] MEDS: RIVAROXABAN 10 MG TABLET PO SCH (08:56)
[2016-12-16] MEDS: MORPHINE 2 MG/ML INJ. SYRINGE IVP PRN ×3 (08:57→23:53)
[2016-12-16] MEDS: methylPREDNISolone SOD SUCC 40 MG/ML VIAL IVP SCH (08:58)
[2016-12-16] MEDS: D5/0.45 NS 1,000 ML IV SCH ×2 (09:07→16:08)
[2016-12-16] MEDS: ATORVASTATIN 20 MG TABLET PO SCH (09:54)
[2016-12-16] MEDS: LORazepam 2 MG/ML VIAL IVP PRN (19:57)
[2016-12-16] MEDS: hydrALAZINE HCL 20 MG/ML VIAL IVP PRN (21:10)
[2016-12-17] VITALS (35 sets, daily range): BP systolic 121–167
[2016-12-17] MEDS: PROPOFOL DRIP 100 ML IV PRN ×2 (00:04→05:31)
[2016-12-17] MEDS: ALBUTEROL SULFATE 0.083% 2.5 MG/3 ML VIAL.NEB INH SCH ×6 (03:24→23:38)
[2016-12-17] MEDS: D5/0.45 NS 1,000 ML IV SCH (05:26)
[2016-12-17] MEDS: PIPERACILLIN/TAZO 3.375/DEX-IS 50 ML IV SCH ×3 (05:51→17:47)
[2016-12-17 06:27] LABS: BASOPHILS # (AUTO) 0.1 K/uL (0.0-0.2); BASOPHILS % (AUTO) 0.6 % (0.0-2.0); EOSINOPHILS % (AUTO) 0.2 % (0.0-4.0); HEMATOCRIT 33.3 % (36-54); HEMOGLOBIN 11.5 g/dL (14.0-18.0); LYMPHOCYTES # (AUTO) 1.2 K/uL (1.0-5.5); LYMPHOCYTES % (AUTO) 7.8 % (20.5-51.5); MEAN CORPUSCULAR HEMOGLOBIN 35 pg (27-31); MEAN CORPUSCULAR HGB CONC 35 % (32-36); MEAN CORPUSCULAR VOLUME 100 fL (79.0-98.0); MONOCYTES # (AUTO) 1.1 K/uL (0.0-1.0); MONOCYTES % (AUTO) 7.4 % (1.7-9.3); NEUTROPHILS # (AUTO) 12.7 K/uL (1.8-7.7); PLATELET COUNT (AUTO) 241 K/uL (130-430); RED BLOOD CELL COUNT(AUTO) 3.33 MIL/uL (4.2-6.2); RED CELL DISTRIBUTION WIDTH 12.5 % (9.0-15.0); WHITE BLOOD COUNT (AUTO) 15.1 K/uL (4.8-10.8)
[2016-12-17 07:01] LABS: ALBUMIN 2.7 g/dL (3.4-4.8); CALCIUM 8.3 mg/dL (8.4-11.0); CREATININE 0.47 mg/dL (0.55-1.30); POTASSIUM 3.2 mmol/L (3.5-5.1); TOTAL BILIRUBIN 0.5 mg/dL (0.0-1.0); TOTAL PROTEIN, SERUM 6.1 g/dL (6.4-8.3)
[2016-12-17 07:45] LABS: BLOOD GAS PH 7.497 (7.350-7.450)
[2016-12-17 07:46] LABS: ABG TOTAL HEMOGLOBIN 12.4 G/dL (12.0-18.0); BLOOD GAS COHb% 0.5 % (0.5-1.5)
[2016-12-17] MEDS: MAGNESIUM OXIDE 400 MG TABLET PO SCH ×2 (09:33→20:24)
[2016-12-17] MEDS: ATORVASTATIN 20 MG TABLET PO SCH (09:33)
[2016-12-17] MEDS: GABAPENTIN 400 MG CAPSULE PO SCH ×3 (09:33→20:24)
[2016-12-17] MEDS: methylPREDNISolone SOD SUCC 40 MG/ML VIAL IVP SCH (09:33)
[2016-12-17] MEDS: amLODIPine BESYLATE 10 MG TABLET PO SCH (09:34)
[2016-12-17] MEDS: SENNOSIDES 8.6 MG TABLET PO SCH (09:34)
[2016-12-17] MEDS: THIAMINE HCL 100 MG TABLET PO SCH (09:34)
[2016-12-17] MEDS: RIVAROXABAN 10 MG TABLET PO SCH (09:36)
[2016-12-17] MEDS ORDERED: POTASSIUM CHLORIDE 20 MEQ/PKT PACKET NG ONE (12:00)
[2016-12-17] MEDS: MORPHINE 2 MG/ML INJ. SYRINGE IVP PRN ×2 (14:28→19:42)
[2016-12-17] MEDS: hydrALAZINE HCL 20 MG/ML VIAL IVP PRN (18:36)
[2016-12-17] MEDS: COLISTIMETHATE SODIUM 150 MG VIAL INH SCH (19:00)
[2016-12-17] MEDS ORDERED: SUCRALFATE 1 GM TABLET ONE (20:40)
[2016-12-17] MEDS: ACETAMINOPHEN 650 MG/20.3 ML UDC GT PRN (22:00)
[2016-12-18] VITALS (31 sets, daily range): BP systolic 93–166
[2016-12-18] MEDS: PIPERACILLIN/TAZO 3.375/DEX-IS 50 ML IV SCH ×5 (00:51→23:47)
[2016-12-18] MEDS: hydrALAZINE HCL 20 MG/ML VIAL IVP PRN ×2 (01:18→21:14)
[2016-12-18] MEDS: ALBUTEROL SULFATE 0.083% 2.5 MG/3 ML VIAL.NEB INH SCH ×6 (03:55→23:22)
[2016-12-18] MEDS: MORPHINE 2 MG/ML INJ. SYRINGE IVP PRN ×4 (04:55→23:47)
[2016-12-18] MEDS: D5/0.45 NS 1,000 ML IV SCH (05:59)
[2016-12-18 06:30] LABS: BASOPHILS % (AUTO) 0.2 % (0.0-2.0); EOSINOPHILS # (AUTO) 0.1 K/uL (0.0-0.4); EOSINOPHILS % (AUTO) 0.6 % (0.0-4.0); HEMATOCRIT 35.3 % (36-54); HEMOGLOBIN 12.4 g/dL (14.0-18.0); LYMPHOCYTES # (AUTO) 1.3 K/uL (1.0-5.5); LYMPHOCYTES % (AUTO) 8.6 % (20.5-51.5); MEAN CORPUSCULAR HEMOGLOBIN 35 pg (27-31); MEAN CORPUSCULAR HGB CONC 35 % (32-36); MEAN CORPUSCULAR VOLUME 100 fL (79.0-98.0); MONOCYTES # (AUTO) 1.3 K/uL (0.0-1.0); MONOCYTES % (AUTO) 8.4 % (1.7-9.3); NEUTROPHILS # (AUTO) 12.8 K/uL (1.8-7.7); NEUTROPHILS % (AUTO) 82.2 % (40.0-70.0); PLATELET COUNT (AUTO) 286 K/uL (130-430); RED BLOOD CELL COUNT(AUTO) 3.52 MIL/uL (4.2-6.2); RED CELL DISTRIBUTION WIDTH 11.9 % (9.0-15.0); WHITE BLOOD COUNT (AUTO) 15.5 K/uL (4.8-10.8)
[2016-12-18 06:57] LABS: ALBUMIN 2.8 g/dL (3.4-4.8); CALCIUM 8.4 mg/dL (8.4-11.0); CREATININE 0.45 mg/dL (0.55-1.30); POTASSIUM 3.4 mmol/L (3.5-5.1); TOTAL BILIRUBIN 0.4 mg/dL (0.0-1.0); TOTAL PROTEIN, SERUM 6.5 g/dL (6.4-8.3)
[2016-12-18] MEDS: COLISTIMETHATE SODIUM 150 MG VIAL INH SCH ×2 (07:00→20:27)
[2016-12-18 07:58] LABS: BLOOD GAS PH 7.478 (7.350-7.450)
[2016-12-18 07:59] LABS: ABG TOTAL HEMOGLOBIN 12.5 G/dL (12.0-18.0); BLOOD GAS COHb% 0.1 % (0.5-1.5); BLOOD GAS HHB 0.7 % (0.0-6.0); BLOOD O2Hb% 98.7 % (94.0-97.0)
[2016-12-18] MEDS: THIAMINE HCL 100 MG TABLET PO SCH (09:59)
[2016-12-18] MEDS: methylPREDNISolone SOD SUCC 40 MG/ML VIAL IVP SCH (09:59)
[2016-12-18] MEDS: ATORVASTATIN 20 MG TABLET PO SCH (09:59)
[2016-12-18] MEDS: SENNOSIDES 8.6 MG TABLET PO SCH (09:59)
[2016-12-18] MEDS: MAGNESIUM OXIDE 400 MG TABLET PO SCH ×2 (09:59→20:51)
[2016-12-18] MEDS: amLODIPine BESYLATE 10 MG TABLET PO SCH (10:00)
[2016-12-18] MEDS: RIVAROXABAN 10 MG TABLET PO SCH (10:01)
[2016-12-18] MEDS: GABAPENTIN 400 MG CAPSULE PO SCH ×3 (10:01→20:51)
[2016-12-18] MEDS ORDERED: POTASSIUM CHLORIDE 20 MEQ TAB.PRT.SR PO ONE (13:45)
[2016-12-19] VITALS (28 sets, daily range): BP systolic 117–167
[2016-12-19] MEDS: D5/0.45 NS 1,000 ML IV SCH ×2 (01:01→20:44)
[2016-12-19] MEDS: ALBUTEROL SULFATE 0.083% 2.5 MG/3 ML VIAL.NEB INH SCH ×6 (04:04→23:06)
[2016-12-19] MEDS: PIPERACILLIN/TAZO 3.375/DEX-IS 50 ML IV SCH ×3 (06:09→18:11)
[2016-12-19 06:42] LABS: BASOPHILS % (AUTO) 0.2 % (0.0-2.0); EOSINOPHILS # (AUTO) 0.1 K/uL (0.0-0.4); EOSINOPHILS % (AUTO) 0.5 % (0.0-4.0); HEMATOCRIT 36.3 % (36-54); HEMOGLOBIN 12.5 g/dL (14.0-18.0); LYMPHOCYTES # (AUTO) 1.2 K/uL (1.0-5.5); LYMPHOCYTES % (AUTO) 7.3 % (20.5-51.5); MEAN CORPUSCULAR HEMOGLOBIN 34 pg (27-31); MEAN CORPUSCULAR HGB CONC 34 % (32-36); MEAN CORPUSCULAR VOLUME 100 fL (79.0-98.0); MONOCYTES # (AUTO) 1.5 K/uL (0.0-1.0); MONOCYTES % (AUTO) 9.3 % (1.7-9.3); NEUTROPHILS # (AUTO) 13.4 K/uL (1.8-7.7); NEUTROPHILS % (AUTO) 82.7 % (40.0-70.0); PLATELET COUNT (AUTO) 282 K/uL (130-430); RED BLOOD CELL COUNT(AUTO) 3.62 MIL/uL (4.2-6.2); RED CELL DISTRIBUTION WIDTH 12.3 % (9.0-15.0); WHITE BLOOD COUNT (AUTO) 16.2 K/uL (4.8-10.8)
[2016-12-19 06:56] LABS: ALBUMIN 2.7 g/dL (3.4-4.8); CALCIUM 8.6 mg/dL (8.4-11.0); CREATININE 0.45 mg/dL (0.55-1.30); POTASSIUM 3.7 mmol/L (3.5-5.1); TOTAL BILIRUBIN 0.5 mg/dL (0.0-1.0); TOTAL PROTEIN, SERUM 6.7 g/dL (6.4-8.3)
[2016-12-19] MEDS: MORPHINE 2 MG/ML INJ. SYRINGE IVP PRN ×3 (07:50→22:55)
[2016-12-19] MEDS: THIAMINE HCL 100 MG TABLET PO SCH (08:15)
[2016-12-19] MEDS: methylPREDNISolone SOD SUCC 40 MG/ML VIAL IVP SCH (08:15)
[2016-12-19] MEDS: amLODIPine BESYLATE 10 MG TABLET PO SCH (08:16)
[2016-12-19] MEDS: MAGNESIUM OXIDE 400 MG TABLET PO SCH ×2 (08:16→20:06)
[2016-12-19] MEDS: ATORVASTATIN 20 MG TABLET PO SCH (08:16)
[2016-12-19] MEDS: SENNOSIDES 8.6 MG TABLET PO SCH (08:16)
[2016-12-19] MEDS: GABAPENTIN 400 MG CAPSULE PO SCH ×3 (08:16→20:06)
[2016-12-19 08:25] LABS: ABG TOTAL HEMOGLOBIN 12.7 G/dL (12.0-18.0); BLOOD GAS PH 7.482 (7.350-7.450)
[2016-12-19 08:26] LABS: BLOOD GAS COHb% 0.8 % (0.5-1.5); BLOOD GAS HHB 1.8 % (0.0-6.0)
[2016-12-19] MEDS: COLISTIMETHATE SODIUM 150 MG VIAL INH SCH ×2 (10:34→19:40)
[2016-12-19] MEDS: RIVAROXABAN 10 MG TABLET PO SCH (10:36)
[2016-12-19 13:50] LABS: ABG TOTAL HEMOGLOBIN 13.2 G/dL (12.0-18.0); BLOOD GAS BASE EXCESS 1.7 mmol/L (-3.0-3.0); BLOOD GAS COHb% 0.5 % (0.5-1.5); BLOOD GAS HHB 4.7 % (0.0-6.0); BLOOD GAS PH 7.486 (7.350-7.450); BLOOD O2Hb% 94.4 % (94.0-97.0)
[2016-12-19] MEDS: LORazepam 2 MG/ML VIAL IVP PRN (15:38)
[2016-12-19 21:49] LABS: BLOOD GAS PH 7.436 (7.350-7.450)
[2016-12-19 21:50] LABS: ABG TOTAL HEMOGLOBIN 13.5 G/dL (12.0-18.0); BLOOD GAS BASE EXCESS -0.7 mmol/L (-3.0-3.0); BLOOD GAS COHb% 0.4 % (0.5-1.5); BLOOD GAS HHB 4.7 % (0.0-6.0); BLOOD O2Hb% 94.5 % (94.0-97.0)
[2016-12-19] MEDS: ACETAMINOPHEN 650 MG/20.3 ML UDC GT PRN (22:17)
[2016-12-20] VITALS (18 sets, daily range): BP systolic 130–176
[2016-12-20] MEDS: PIPERACILLIN/TAZO 3.375/DEX-IS 50 ML IV SCH ×5 (00:15→23:40)
[2016-12-20] MEDS: MORPHINE 2 MG/ML INJ. SYRINGE IVP PRN ×3 (02:12→23:16)
[2016-12-20] MEDS: ALBUTEROL SULFATE 0.083% 2.5 MG/3 ML VIAL.NEB INH SCH ×6 (03:00→23:15)
[2016-12-20 06:56] LABS: BASOPHILS % (AUTO) 0.2 % (0.0-2.0); EOSINOPHILS # (AUTO) 0.1 K/uL (0.0-0.4); EOSINOPHILS % (AUTO) 0.7 % (0.0-4.0); HEMATOCRIT 34.8 % (36-54); HEMOGLOBIN 12.4 g/dL (14.0-18.0); LYMPHOCYTES # (AUTO) 1.6 K/uL (1.0-5.5); LYMPHOCYTES % (AUTO) 7.8 % (20.5-51.5); MEAN CORPUSCULAR HEMOGLOBIN 36 pg (27-31); MEAN CORPUSCULAR HGB CONC 36 % (32-36); MEAN CORPUSCULAR VOLUME 101 fL (79.0-98.0); MONOCYTES # (AUTO) 1.1 K/uL (0.0-1.0); MONOCYTES % (AUTO) 5.3 % (1.7-9.3); NEUTROPHILS # (AUTO) 17.3 K/uL (1.8-7.7); PLATELET COUNT (AUTO) 273 K/uL (130-430); RED BLOOD CELL COUNT(AUTO) 3.44 MIL/uL (4.2-6.2); RED CELL DISTRIBUTION WIDTH 12.1 % (9.0-15.0); WHITE BLOOD COUNT (AUTO) 20.1 K/uL (4.8-10.8)
[2016-12-20 07:01] LABS: CALCIUM 8.5 mg/dL (8.4-11.0); CREATININE 0.39 mg/dL (0.55-1.30); POTASSIUM 3.2 mmol/L (3.5-5.1)
[2016-12-20] MEDS: COLISTIMETHATE SODIUM 150 MG VIAL INH SCH ×2 (08:06→19:00)
[2016-12-20] MEDS: ATORVASTATIN 20 MG TABLET PO SCH (08:43)
[2016-12-20] MEDS: MAGNESIUM OXIDE 400 MG TABLET PO SCH ×2 (08:43→20:48)
[2016-12-20] MEDS: RIVAROXABAN 10 MG TABLET PO SCH (08:43)
[2016-12-20] MEDS: methylPREDNISolone SOD SUCC 40 MG/ML VIAL IVP SCH (08:43)
[2016-12-20] MEDS: THIAMINE HCL 100 MG TABLET PO SCH (08:44)
[2016-12-20] MEDS: amLODIPine BESYLATE 10 MG TABLET PO SCH (08:44)
[2016-12-20] MEDS: SENNOSIDES 8.6 MG TABLET PO SCH (08:44)
[2016-12-20] MEDS: GABAPENTIN 400 MG CAPSULE PO SCH ×3 (08:45→20:53)
[2016-12-20] MEDS: LORazepam 2 MG/ML VIAL IVP PRN (09:09)
[2016-12-20 10:30] LABS: ABG TOTAL HEMOGLOBIN 12.1 G/dL (12.0-18.0); BLOOD GAS BASE EXCESS 1.6 mmol/L (-3.0-3.0); BLOOD GAS COHb% 0.5 % (0.5-1.5); BLOOD O2Hb% 94.1 % (94.0-97.0)
[2016-12-20] MEDS ORDERED: POTASSIUM CHLORIDE 40 MEQ, LIDOCAINE JECT 2% PF 100 MG 50 MG in NS 250 ML IV ONE (11:00)
[2016-12-20] MEDS ORDERED: cloNIDine HCL 0.1 MG TABLET PO PRN (12:00)
[2016-12-20 15:49] LABS: ALBUMIN 2.8 g/dL (3.4-4.8); CALCIUM 8.4 mg/dL (8.4-11.0); CREATININE 0.47 mg/dL (0.55-1.30); POTASSIUM 4.3 mmol/L (3.5-5.1); TOTAL BILIRUBIN 0.6 mg/dL (0.0-1.0); TOTAL PROTEIN, SERUM 6.7 g/dL (6.4-8.3)
[2016-12-20] MEDS: ACETAMINOPHEN 650 MG/20.3 ML UDC GT PRN (20:47)
[2016-12-20] MEDS: D5/0.45 NS 1,000 ML IV SCH (20:59)
[2016-12-21] VITALS (8 sets, daily range): BP systolic 114–145
[2016-12-21] MEDS: ALBUTEROL SULFATE 0.083% 2.5 MG/3 ML VIAL.NEB INH SCH ×6 (03:00→23:19)
[2016-12-21] MEDS: PIPERACILLIN/TAZO 3.375/DEX-IS 50 ML IV SCH ×2 (05:17→11:28)
[2016-12-21 07:26] LABS: BASOPHILS % (AUTO) 0.2 % (0.0-2.0); EOSINOPHILS # (AUTO) 0.1 K/uL (0.0-0.4); EOSINOPHILS % (AUTO) 0.7 % (0.0-4.0); HEMATOCRIT 32.2 % (36-54); LYMPHOCYTES # (AUTO) 1.6 K/uL (1.0-5.5); LYMPHOCYTES % (AUTO) 12.2 % (20.5-51.5); MEAN CORPUSCULAR HEMOGLOBIN 33 pg (27-31); MEAN CORPUSCULAR HGB CONC 34 % (32-36); MEAN CORPUSCULAR VOLUME 96 fL (79.0-98.0); MONOCYTES # (AUTO) 1.3 K/uL (0.0-1.0); MONOCYTES % (AUTO) 9.4 % (1.7-9.3); NEUTROPHILS # (AUTO) 10.3 K/uL (1.8-7.7); NEUTROPHILS % (AUTO) 77.5 % (40.0-70.0); PLATELET COUNT (AUTO) 280 K/uL (130-430); RED BLOOD CELL COUNT(AUTO) 3.35 MIL/uL (4.2-6.2); RED CELL DISTRIBUTION WIDTH 11.9 % (9.0-15.0)
[2016-12-21 07:30] LABS: WHITE BLOOD COUNT (AUTO) 13.3 K/uL (4.8-10.8)
[2016-12-21 07:34] LABS: CALCIUM 8.2 mg/dL (8.4-11.0); CREATININE 0.47 mg/dL (0.55-1.30); POTASSIUM 3.3 mmol/L (3.5-5.1)
[2016-12-21] MEDS: COLISTIMETHATE SODIUM 150 MG VIAL INH SCH ×2 (07:57→19:22)
[2016-12-21] MEDS: methylPREDNISolone SOD SUCC 40 MG/ML VIAL IVP SCH (08:21)
[2016-12-21] MEDS: THIAMINE HCL 100 MG TABLET PO SCH (08:22)
[2016-12-21] MEDS: amLODIPine BESYLATE 10 MG TABLET PO SCH (08:22)
[2016-12-21] MEDS: MAGNESIUM OXIDE 400 MG TABLET PO SCH ×2 (08:22→20:15)
[2016-12-21] MEDS: RIVAROXABAN 10 MG TABLET PO SCH (08:22)
[2016-12-21] MEDS: SENNOSIDES 8.6 MG TABLET PO SCH (08:22)
[2016-12-21] MEDS: ATORVASTATIN 20 MG TABLET PO SCH (08:23)
[2016-12-21] MEDS: GABAPENTIN 400 MG CAPSULE PO SCH ×3 (08:34→20:15)
[2016-12-21] MEDS ORDERED: POTASSIUM CHLORIDE 20 MEQ TAB.PRT.SR PO ONE (09:15)
[2016-12-21] MEDS: MORPHINE 2 MG/ML INJ. SYRINGE IVP PRN ×3 (09:24→18:44)
[2016-12-21 11:21] LABS: ABG TOTAL HEMOGLOBIN 11.9 G/dL (12.0-18.0); BLOOD GAS BASE EXCESS 1.6 mmol/L (-3.0-3.0); BLOOD GAS COHb% 0.3 % (0.5-1.5); BLOOD GAS HHB 3.2 % (0.0-6.0); BLOOD GAS PH 7.463 (7.350-7.450); BLOOD O2Hb% 96.3 % (94.0-97.0)
[2016-12-21] MEDS: ACETAMINOPHEN 650 MG/20.3 ML UDC GT PRN (11:30)
[2016-12-21] MEDS: D5/0.45 NS 1,000 ML IV SCH (17:04)
[2016-12-22] MEDS: ALBUTEROL SULFATE 0.083% 2.5 MG/3 ML VIAL.NEB INH SCH ×6 (03:00→23:00)
[2016-12-22 03:36] VITALS: BP_SYST 135
[2016-12-22] MEDS: ACETAMINOPHEN 650 MG/20.3 ML UDC GT PRN (03:45)
[2016-12-22] MEDS: COLISTIMETHATE SODIUM 150 MG VIAL INH SCH ×3 (07:00→19:22)
[2016-12-22 08:10] VITALS: BP_SYST 136
[2016-12-22] MEDS: RIVAROXABAN 10 MG TABLET PO SCH (08:12)
[2016-12-22] MEDS: ATORVASTATIN 20 MG TABLET PO SCH (08:12)
[2016-12-22] MEDS: MAGNESIUM OXIDE 400 MG TABLET PO SCH ×2 (08:12→20:42)
[2016-12-22] MEDS: SENNOSIDES 8.6 MG TABLET PO SCH (08:12)
[2016-12-22] MEDS: THIAMINE HCL 100 MG TABLET PO SCH (08:12)
[2016-12-22] MEDS: GABAPENTIN 400 MG CAPSULE PO SCH ×3 (08:12→20:42)
[2016-12-22] MEDS: amLODIPine BESYLATE 10 MG TABLET PO SCH (08:12)
[2016-12-22 13:17] LABS: ALBUMIN 2.7 g/dL (3.4-4.8); CALCIUM 8.3 mg/dL (8.4-11.0); CREATININE 0.42 mg/dL (0.55-1.30); POTASSIUM 3.6 mmol/L (3.5-5.1); TOTAL BILIRUBIN 0.4 mg/dL (0.0-1.0); TOTAL PROTEIN, SERUM 6.5 g/dL (6.4-8.3)
[2016-12-22 15:27] VITALS: BP_SYST 124
[2016-12-22] MEDS: D5/0.45 NS 1,000 ML IV SCH (16:08)
[2016-12-22] MEDS ORDERED: CAT.1 PO (16:31)
[2016-12-22] MEDS ORDERED: COLI150V10 INH (16:32)
[2016-12-22] MEDS ORDERED: THIA100T13 PO (16:32)
[2016-12-22] MEDS ORDERED: SENN-153 PO (16:33)
[2016-12-22] MEDS ORDERED: ALBU1.256 IH (16:34)
[2016-12-22] MEDS ORDERED: HYDR20VI5 IVP (16:35)
[2016-12-22 16:48] VITALS: BP_SYST 97
[2016-12-22 17:21] VITALS: BP_SYST 137
[2016-12-22] MEDS ORDERED: HYDROcodone/ACETAMIN 5-325 MG TAB (NORCO/ VICODIN) PO ONE (17:30)
[2016-12-22 23:32] VITALS: BP_SYST 136
[2016-12-23] VITALS (7 sets, daily range): BP systolic 120–141
[2016-12-23] MEDS: ACETAMINOPHEN 650 MG/20.3 ML UDC GT PRN ×2 (02:06→05:54)
[2016-12-23] MEDS: ALBUTEROL SULFATE 0.083% 2.5 MG/3 ML VIAL.NEB INH SCH ×5 (03:00→23:00)
[2016-12-23 07:32] LABS: ALBUMIN 2.8 g/dL (3.4-4.8); CALCIUM 9.1 mg/dL (8.4-11.0); CREATININE 0.42 mg/dL (0.55-1.30); POTASSIUM 3.5 mmol/L (3.5-5.1); TOTAL BILIRUBIN 0.6 mg/dL (0.0-1.0); TOTAL PROTEIN, SERUM 6.5 g/dL (6.4-8.3)
[2016-12-23] MEDS: COLISTIMETHATE SODIUM 150 MG VIAL INH SCH ×2 (08:05→20:06)
[2016-12-23] MEDS: D5/0.45 NS 1,000 ML IV SCH (08:37)
[2016-12-23] MEDS: ATORVASTATIN 20 MG TABLET PO SCH (08:38)
[2016-12-23] MEDS: THIAMINE HCL 100 MG TABLET PO SCH (08:38)
[2016-12-23] MEDS: HYDROcodone/ACETAMIN 5-325 MG TAB (NORCO/ VICODIN) PO PRN ×3 (08:38→20:22)
[2016-12-23] MEDS: RIVAROXABAN 10 MG TABLET PO SCH (08:39)
[2016-12-23] MEDS: SENNOSIDES 8.6 MG TABLET PO SCH (08:39)
[2016-12-23] MEDS: amLODIPine BESYLATE 10 MG TABLET PO SCH (08:39)
[2016-12-23] MEDS: GABAPENTIN 400 MG CAPSULE PO SCH ×3 (08:39→20:20)
[2016-12-23] MEDS: MAGNESIUM OXIDE 400 MG TABLET PO SCH ×2 (08:39→20:22)
[2016-12-24] VITALS (8 sets, daily range): BP systolic 116–134
[2016-12-24] MEDS: ACETAMINOPHEN 650 MG/20.3 ML UDC GT PRN (00:49)
[2016-12-24] MEDS: ALBUTEROL SULFATE 0.083% 2.5 MG/3 ML VIAL.NEB INH SCH ×5 (03:00→19:00)
[2016-12-24] MEDS: D5/0.45 NS 1,000 ML IV SCH (04:48)
[2016-12-24] MEDS: HYDROcodone/ACETAMIN 5-325 MG TAB (NORCO/ VICODIN) PO PRN ×2 (06:19→21:35)
[2016-12-24] MEDS: COLISTIMETHATE SODIUM 150 MG VIAL INH SCH ×2 (07:00→19:00)
[2016-12-24 08:05] LABS: BASOPHILS % (AUTO) 0.1 % (0.0-2.0); EOSINOPHILS # (AUTO) 0.2 K/uL (0.0-0.4); EOSINOPHILS % (AUTO) 2.2 % (0.0-4.0); HEMATOCRIT 34.5 % (36-54); HEMOGLOBIN 11.6 g/dL (14.0-18.0); LYMPHOCYTES # (AUTO) 1.6 K/uL (1.0-5.5); LYMPHOCYTES % (AUTO) 19.4 % (20.5-51.5); MEAN CORPUSCULAR HEMOGLOBIN 34 pg (27-31); MEAN CORPUSCULAR HGB CONC 34 % (32-36); MEAN CORPUSCULAR VOLUME 100 fL (79.0-98.0); MONOCYTES # (AUTO) 0.7 K/uL (0.0-1.0); MONOCYTES % (AUTO) 8.7 % (1.7-9.3); NEUTROPHILS # (AUTO) 5.9 K/uL (1.8-7.7); NEUTROPHILS % (AUTO) 69.6 % (40.0-70.0); PLATELET COUNT (AUTO) 320 K/uL (130-430); RED BLOOD CELL COUNT(AUTO) 3.44 MIL/uL (4.2-6.2); RED CELL DISTRIBUTION WIDTH 12.1 % (9.0-15.0); WHITE BLOOD COUNT (AUTO) 8.4 K/uL (4.8-10.8)
[2016-12-24] MEDS: SENNOSIDES 8.6 MG TABLET PO SCH (09:30)
[2016-12-24] MEDS: RIVAROXABAN 10 MG TABLET PO SCH (09:30)
[2016-12-24] MEDS: THIAMINE HCL 100 MG TABLET PO SCH (09:30)
[2016-12-24] MEDS: MAGNESIUM OXIDE 400 MG TABLET PO SCH ×2 (09:30→21:35)
[2016-12-24] MEDS: amLODIPine BESYLATE 10 MG TABLET PO SCH (09:30)
[2016-12-24] MEDS: GABAPENTIN 400 MG CAPSULE PO SCH ×3 (09:31→21:35)
[2016-12-24] MEDS: ATORVASTATIN 20 MG TABLET PO SCH (09:31)
[2016-12-24] MEDS ORDERED: COMMUNICATION ORDER XX ONE (12:30)
[2016-12-25] MEDS: ALBUTEROL SULFATE 0.083% 2.5 MG/3 ML VIAL.NEB INH SCH ×6 (01:21→23:00)
[2016-12-25 04:09] VITALS: BP_SYST 120
[2016-12-25] MEDS: HYDROcodone/ACETAMIN 5-325 MG TAB (NORCO/ VICODIN) PO PRN ×3 (06:37→20:46)
[2016-12-25] MEDS: COLISTIMETHATE SODIUM 150 MG VIAL INH SCH ×2 (07:00→19:00)
[2016-12-25 07:50] VITALS: BP_SYST 121
[2016-12-25] MEDS: ATORVASTATIN 20 MG TABLET PO SCH (09:30)
[2016-12-25] MEDS: THIAMINE HCL 100 MG TABLET PO SCH (09:31)
[2016-12-25] MEDS: GABAPENTIN 400 MG CAPSULE PO SCH ×3 (09:31→20:41)
[2016-12-25] MEDS: MAGNESIUM OXIDE 400 MG TABLET PO SCH ×2 (09:31→20:41)
[2016-12-25] MEDS: SENNOSIDES 8.6 MG TABLET PO SCH (09:31)
[2016-12-25] MEDS: RIVAROXABAN 10 MG TABLET PO SCH (09:31)
[2016-12-25] MEDS: amLODIPine BESYLATE 10 MG TABLET PO SCH (09:32)
[2016-12-25 12:10] VITALS: BP_SYST 126
[2016-12-25 16:52] VITALS: BP_SYST 130
[2016-12-25 21:30] VITALS: BP_SYST 125
[2016-12-25 22:00] VITALS: BP_SYST 124
[2016-12-26 00:02] VITALS: BP_SYST 128
[2016-12-26] MEDS ORDERED: TEMAZEPAM 15 MG CAPSULE PO ONE (00:15)
[2016-12-26] MEDS: ALBUTEROL SULFATE 0.083% 2.5 MG/3 ML VIAL.NEB INH SCH ×3 (03:00→11:32)
[2016-12-26] MEDS: HYDROcodone/ACETAMIN 5-325 MG TAB (NORCO/ VICODIN) PO PRN ×2 (04:23→15:47)
[2016-12-26 04:30] VITALS: BP_SYST 112
[2016-12-26] MEDS: COLISTIMETHATE SODIUM 150 MG VIAL INH SCH (07:00)
[2016-12-26 08:00] VITALS: BP_SYST 123
[2016-12-26] MEDS: SENNOSIDES 8.6 MG TABLET PO SCH (09:35)
[2016-12-26] MEDS: RIVAROXABAN 10 MG TABLET PO SCH (09:36)
[2016-12-26] MEDS: THIAMINE HCL 100 MG TABLET PO SCH (09:36)
[2016-12-26] MEDS: MAGNESIUM OXIDE 400 MG TABLET PO SCH (09:36)
[2016-12-26] MEDS: ATORVASTATIN 20 MG TABLET PO SCH (09:36)
[2016-12-26] MEDS: amLODIPine BESYLATE 10 MG TABLET PO SCH (09:36)
[2016-12-26] MEDS: GABAPENTIN 400 MG CAPSULE PO SCH ×2 (09:36→15:33)
[2016-12-26] MEDS: ACETAMINOPHEN 650 MG/20.3 ML UDC GT PRN (10:56)
[2016-12-26 14:43] VITALS: BP_SYST 127
[2016-12-26 14:44] VITALS: BP_SYST 127
[2016-12-26 17:05] VITALS: BP_SYST 142
== END 2016-12-26 14:10 | DRG 720 ==
LOC: SED 18:04 → SIC 20:10 → STU 12-20 17:57 → SMU 12-23 15:45
PROVIDERS: ATTEND Internal Medicine Hospice and Palliative Medicine
PROC: 5A1955Z Respiratory Ventilation, Greater than 96 Consecutive Hours (ICD-10-PCS; principal; 2016-12-09)
PROC: 0BH17EZ Insertion of Endotracheal Airway into Trachea, Via Natural or Artificial Opening (ICD-10-PCS; 2016-12-09)
DX: A41.9 Sepsis, unspecified organism (principal); J96.01 Acute respiratory failure with hypoxia; J69.0 Pneumonitis due to inhalation of food and vomit; J15.1 Pneumonia due to Pseudomonas; J44.9 Chronic obstructive pulmonary disease, unspecified; G61.0 Guillain-Barre syndrome; G82.20 Paraplegia, unspecified; D72.829 Elevated white blood cell count, unspecified; G89.29 Other chronic pain; I10 Essential (primary) hypertension; N39.0 Urinary tract infection, site not specified; G61.81 Chronic inflammatory demyelinating polyneuritis; Z79.899 Other long term (current) drug therapy; Z87.01 Personal history of pneumonia (recurrent); T38.0X5A Adverse effect of glucocorticoids and synthetic analogues, initial encounter; Y92.89 Other specified places as the place of occurrence of the external cause
CPT/HCPCS: 36415; 36600; 71010; 80048; 80053; 81000-TC; 82550-TC; 82803-TC; 82962; 83605; 84484; 85007; 85025; 85027; 85610-TC; 85730-TC; 87040-TC; 87070-TC; 87081; 87186-TC; 87205-TC; 93005; 94002; 94003; 94640; 94760; 96365; 96368; 99291; J0330; J0360; J0770; J1030; J1956; J2060; J2250; J2270; J2543; J2704; J2930; J3360; J3480; J3490; J7040; J7050